=== PATIENT | male | born 1960 | race Caucasian/White ===

== ENCOUNTER 2019-05-13 01:18 | Inpatient (IN) | payer OTHER ==
[~2019-05-13] VITALS: Ht 177.8 cm; Wt 144.0 kg
[2019-05-13] MEDS ORDERED: SERT25TA PO (01:59)
[2019-05-13] MEDS ORDERED: SYN0.088T PO (01:59)
[2019-05-13] MEDS ORDERED: BROM2.5T22 PO (01:59)
[2019-05-13] MEDS ORDERED: HUM7525 SQ (01:59)
[2019-05-13] MEDS ORDERED: ALOG25TA2 PO (01:59)
[2019-05-13] MEDS ORDERED: ATOR20TA PO (01:59)
[2019-05-13] MEDS ORDERED: TRAZ-219 PO (01:59)
[2019-05-13] MEDS ORDERED: INSU100V9 SQ (01:59)
[2019-05-13 02:03] LABS: BASOPHILS # (AUTO) 0.1 X10'3 (0-0.2); BASOPHILS % (AUTO) 0.7 % (0-1); EOSINOPHILS # (AUTO) 0.2 X10'3 (0-0.9); EOSINOPHILS % (AUTO) 1.7 % (0-6); HEMATOCRIT 36.1 % (42.0-52.0); HEMOGLOBIN 11.8 g/dl (14.0-17.9); LYMPHOCYTES # (AUTO) 1.6 X10'3 (1.1-4.8); LYMPHOCYTES % (AUTO) 13.5 % (21-51); MEAN CORPUSCULAR HEMOGLOBIN 28.7 PG (27.0-31.0); MEAN CORPUSCULAR HGB CONC 32.8 g/dL (33.0-36.5); MEAN CORPUSCULAR VOLUME 87.5 FL (78-98); MEAN PLATELET VOLUME 7.5 FL (7.4-10.4); NEUTROPHILS # (AUTO) 8.7 X10'3 (1.8-7.7); NEUTROPHILS % (AUTO) 75.1 % (42-75); PLATELET COUNT 231 X10'3 (140-440); RED BLOOD COUNT 4.13 X10'6 (4.70-6.10); RED CELL DISTRIBUTION WIDTH 14.6 % (11.5-14.5); WHITE BLOOD COUNT 11.6 X10'3 (4.5-11.0)
[2019-05-13 02:43] LABS: ALANINE AMINOTRANSFERASE 39 U/L (12-78); ALBUMIN 3.2 G/DL (3.4-5.0); ALBUMIN/GLOBULIN RATIO 0.8 (1.1-1.5); ALKALINE PHOSPHATASE 67 IU/L (46-116); ANION GAP 10 (8-16); ASPARTATE AMINO TRANSFERASE 16 U/L (10-37); BILIRUBIN,TOTAL 0.2 MG/DL (0.1-1.0); BLOOD UREA NITROGEN 17 MG/DL (7-18); BUN/CREATININE RATIO 9.1 (5.4-32.0); CALCIUM 8.9 MG/DL (8.5-10.1); CHLORIDE 106 MMOL/L (99-107); CREATININE 1.87 MG/DL (0.60-1.10); GLUCOSE 136 MG/DL (70-104); POTASSIUM 4.1 MMOL/L (3.5-5.1); SODIUM 143 MMOL/L (135-145); TOTAL CARBON DIOXIDE 27.2 MMOL/L (24-32); TOTAL PROTEIN 7.3 G/DL (6.4-8.2); eGFR 37 ML/MIN
[2019-05-13] MEDS ORDERED: normal saline 1000ML IV soln IVB ONE ×2 (03:00→06:35)
[2019-05-13] MEDS ORDERED: ondansetron/PF 4mg/2ml inj IV ONE (03:00)
[2019-05-13] MEDS ORDERED: morphine 4 MG/ML inj SYRINge IV ONE ×2 (03:00→06:35)
[2019-05-13 03:22] LABS: CLARITY,URINE CLEAR (Clear); COLOR,URINE YELLOW (Yellow); GLUCOSE, URINE NEGATIVE (Neg); KETONES,URINE TRACE mg/dl (Neg); LEUKOCYTE ESTERASE ,URINE NEGATIVE (Neg); NITRITES, URINE NEGATIVE (Neg); OCCULT BLOOD,URINE NEGATIVE (Neg); PROTEIN,URINE NEGATIVE (Neg); UA COLLECTION TYPE CLN CATCH MIDSTREAM; UROBILINOGEN,URINE 0.2 E.U/dL (0.2-1.0)
[2019-05-13] MEDS ORDERED: HYDR-3965 PO (06:10)
[2019-05-13] MEDS ORDERED: piperacillin/tazo 3.375gm/50ml 50 ML IV ONE (06:35)
[2019-05-13] MEDS ORDERED: CIPR-230 PO (07:00)
[2019-05-13] MEDS ORDERED: CHLO25TA2 PO (07:00)
[2019-05-13] MEDS ORDERED: METR-159 PO (07:00)
[2019-05-13] MEDS ORDERED: RANI-388 PO (07:00)
[2019-05-13] MEDS ORDERED: LISI40TA4 PO (07:04)
[2019-05-13] MEDS ORDERED: potassium CL 10mEq/100ml bag 100 ML IV PRN ×2 (07:40)
[2019-05-13] MEDS ORDERED: magnesium 4gm in 100ml NS 100 ML IV PRN (07:40)
[2019-05-13] MEDS ORDERED: magnesium 2GM in 50ml NS 50 ML IV PRN (07:40)
[2019-05-13] MEDS ORDERED: ondansetron/PF 4mg/2ml inj IV PRN (07:40)
[2019-05-13] MEDS ORDERED: magnesium Cl slow-release 64mg tablet PO PRN (07:40)
[2019-05-13] MEDS ORDERED: potassium Cl 20 mEq SR tablet PO PRN ×2 (07:40)
[2019-05-13] MEDS: piperacillin/tazo 4.5gm/100ml 100 ML IV SCH ×3 (08:00→23:49)
--- NOTE | 2019-05-13 08:12 | NUR ---
RN unable to take report will call back in 15 min
[2019-05-13] MEDS: K and/or MAG REPLACEMENT MC SCH (08:17)
[2019-05-13] MEDS: normal saline 1000ml 1,000 ML IV SCH ×3 (08:18→23:51)
--- NOTE | 2019-05-13 08:37 | NUR ---
report received from Venancio BO In the ER
[2019-05-13 09:00] VITALS: BP 115/79
[2019-05-13] MEDS ORDERED: BROM0.8T PO (09:44)
[2019-05-13] MEDS ORDERED: LEVO25TA7 PO (09:44)
[2019-05-13] MEDS ORDERED: ASPI-611 PO (09:44)
[2019-05-13] MEDS ORDERED: [UNRECOGNIZED DRUG - CODE] PO (09:44)
[2019-05-13] MEDS ORDERED: DONE5TAB7 PO (09:44)
[2019-05-13] MEDS ORDERED: ZONI100C6 PO (09:44)
[2019-05-13] MEDS ORDERED: SERT100T10 PO (09:44)
[2019-05-13] MEDS ORDERED: MELA3TAB64 PO (09:44)
[2019-05-13 10:00] VITALS: BP 150/66
[2019-05-13] MEDS ORDERED: dextrose ORAL solution 15 GM/59 ML bottle PO PRN ×2 (11:30)
[2019-05-13] MEDS ORDERED: MESSAGE TO PHARMACY PO ONE (11:30)
[2019-05-13] MEDS ORDERED: glucagon, human recombinant 1mg kit SUBCUT PRN (11:30)
[2019-05-13] MEDS ORDERED: dextrose 50%-water 50ml dispensing syringe IV PRN ×2 (11:30)
[2019-05-13] MEDS ORDERED: insulin Lispro (HumaLOG) vial - multi-dose SQ SCH (11:30)
[2019-05-13] MEDS: ESOMEPRAZOLE 40 MG VIAL IV SCH (11:53)
[2019-05-13] MEDS: morphine 2 MG/ML inj. syringe IV PRN ×3 (11:53→21:45)
[2019-05-13 12:07] LABS: HEMOGLOBIN A1C 7.4 % (4.5-6.2)
[2019-05-13 18:00] VITALS: BP 119/58
--- NOTE | 2019-05-13 18:32 | NUR ---
Problems reprioritized. Patient report given, questions answered & plan of care reviewed with Lucian BO.
[2019-05-13] MEDS: zonisamide 100mg capsule PO SCH (20:00)
[2019-05-13] MEDS: insulin glargine (Lantus) pen - multi-dose SQ SCH (21:00)
[2019-05-13] MEDS: lactobacillus rhamnosus 10,000 MMU CELLS/CAPSULE PO SCH (21:30)
[2019-05-13] MEDS: traZODone 50mg tablet PO SCH (21:32)
[2019-05-13] MEDS: atorvastatin 20mg tablet PO SCH (21:32)
[2019-05-13] MEDS: donepezil 5mg tablet PO SCH (21:32)
[2019-05-13] MEDS: Melatonin 3mg tablet PO SCH (21:36)
[2019-05-13] MEDS: lisinopril 20mg tablet PO SCH (21:38)
[2019-05-13 22:00] VITALS: BP 126/60
--- NOTE | 2019-05-13 23:26 | NUR ---
cpap started by RT. pt tolerating at this time.
[2019-05-14 06:00] VITALS: BP 99/55
--- NOTE | 2019-05-14 06:00 | NUR ---
Patient in room [facility] 4015. I have received report from Lucian and had the opportunity to ask questions and assume patient care.
--- NOTE | 2019-05-14 06:07 | NUR ---
reported to days. noted pt on bowel rest. no orders for today.
[2019-05-14 06:10] LABS: ALBUMIN 2.8 G/DL (3.4-5.0); ANION GAP 6 (8-16); BLOOD UREA NITROGEN 15 MG/DL (7-18); BUN/CREATININE RATIO 9.4 (5.4-32.0); CALCIUM 8.1 MG/DL (8.5-10.1); CHLORIDE 109 MMOL/L (99-107); CREATININE 1.59 MG/DL (0.60-1.10); GLUCOSE 138 MG/DL (70-104); MAGNESIUM 1.7 MG/DL (1.5-2.4); POTASSIUM 4.2 MMOL/L (3.5-5.1); SODIUM 143 MMOL/L (135-145); TOTAL CARBON DIOXIDE 27.9 MMOL/L (24-32); eGFR 45 ML/MIN
[2019-05-14 06:12] LABS: BASOPHILS % (AUTO) 0.6 % (0-1); EOSINOPHILS # (AUTO) 0.3 X10'3 (0-0.9); EOSINOPHILS % (AUTO) 4.1 % (0-6); HEMATOCRIT 34.3 % (42.0-52.0); LYMPHOCYTES # (AUTO) 1.7 X10'3 (1.1-4.8); LYMPHOCYTES % (AUTO) 23.9 % (21-51); MEAN CORPUSCULAR HEMOGLOBIN 28.6 PG (27.0-31.0); MEAN CORPUSCULAR HGB CONC 32.2 g/dL (33.0-36.5); MEAN CORPUSCULAR VOLUME 88.6 FL (78-98); MONOCYTES # (AUTO) 0.7 X10'3 (0-0.9); MONOCYTES % (AUTO) 10.7 % (2-12); NEUTROPHILS # (AUTO) 4.3 X10'3 (1.8-7.7); NEUTROPHILS % (AUTO) 60.7 % (42-75); PLATELET COUNT 207 X10'3 (140-440); RED BLOOD COUNT 3.87 X10'6 (4.70-6.10); RED CELL DISTRIBUTION WIDTH 14.6 % (11.5-14.5)
[2019-05-14] MEDS ORDERED: BROMOCRIPTINE MESYLATE 0.8 MG PO SCH (08:00)
[2019-05-14] MEDS: K and/or MAG REPLACEMENT MC SCH (08:00)
[2019-05-14] MEDS: zonisamide 100mg capsule PO SCH (08:00)
[2019-05-14] MEDS ORDERED: BROMOCRIPTINE PO SCH (08:00)
[2019-05-14] MEDS: ESOMEPRAZOLE 40 MG VIAL IV SCH (09:04)
[2019-05-14] MEDS: lactobacillus rhamnosus 10,000 MMU CELLS/CAPSULE PO SCH ×2 (09:04→19:42)
[2019-05-14] MEDS: piperacillin/tazo 4.5gm/100ml 100 ML IV SCH ×2 (09:04→16:26)
[2019-05-14] MEDS: levoTHYROXINE 25mcg tablet PO SCH (09:05)
[2019-05-14] MEDS: aspirin 81mg tablet.DR PO SCH (09:05)
[2019-05-14] MEDS: sertraline 50mg tablet PO SCH (09:06)
[2019-05-14] MEDS: normal saline 1000ml 1,000 ML IV SCH ×2 (09:18→23:51)
[2019-05-14 10:00] VITALS: BP 124/71
[2019-05-14] MEDS: morphine 2 MG/ML inj. syringe IV PRN ×3 (11:10→21:59)
--- NOTE | 2019-05-14 12:38 | NUR ---
WOUND INFECTION EDUCATION PROVIDED BY [facility]OUND [facility] 1. Patient instructed to call their primary doctor, or go the ED immediately if any of the following symptoms occur: * Increased pain in wound * Increase in drainage from the wound * Redness in the skin surrounding the wound * Warmth in the skin surrounding the wound * Bleeding from the wound * Temperature of 101 or greater 2. If any of these occur while in the hospital tell a nurse immediately. Addendum: 05/14/19 at 1238 by Xenia Tripp RN Amended: Links added.
--- NOTE | 2019-05-14 17:33 | NUR ---
DM consult, A1c is 7.4, patient given written DM education handout with verbal review and referral to outpatient DM education class on Sunday. Addendum: 05/14/19 at [address] Amended: Links added.
[2019-05-14 18:00] VITALS: BP 147/85
--- NOTE | 2019-05-14 18:38 | NUR ---
Problems reprioritized. Patient report given, questions answered & plan of care reviewed with Panda BO.
--- NOTE | 2019-05-14 18:39 | NUR ---
Patient in room [facility]TH[facility] 4015. I have received report from Tash BO and had the opportunity to ask questions and assume patient care.
[2019-05-14] MEDS: traZODone 50mg tablet PO SCH (19:41)
[2019-05-14] MEDS: lisinopril 20mg tablet PO SCH (19:41)
[2019-05-14] MEDS: donepezil 5mg tablet PO SCH (19:42)
[2019-05-14] MEDS: atorvastatin 20mg tablet PO SCH (19:42)
[2019-05-14] MEDS: Melatonin 3mg tablet PO SCH (19:42)
[2019-05-14] MEDS: insulin glargine (Lantus) pen - multi-dose SQ SCH (19:47)
[2019-05-14 22:00] VITALS: BP 112/58
[2019-05-15] MEDS: piperacillin/tazo 4.5gm/100ml 100 ML IV SCH ×2 (00:32→08:59)
[2019-05-15] MEDS: morphine 2 MG/ML inj. syringe IV PRN ×2 (01:57→08:47)
[2019-05-15 06:29] LABS: ALBUMIN 2.7 G/DL (3.4-5.0); ANION GAP 7 (8-16); BLOOD UREA NITROGEN 14 MG/DL (7-18); BUN/CREATININE RATIO 11.5 (5.4-32.0); CALCIUM 8.4 MG/DL (8.5-10.1); CHLORIDE 109 MMOL/L (99-107); CREATININE 1.22 MG/DL (0.60-1.10); GLUCOSE 135 MG/DL (70-104); MAGNESIUM 1.7 MG/DL (1.5-2.4); SODIUM 143 MMOL/L (135-145); TOTAL CARBON DIOXIDE 26.8 MMOL/L (24-32); eGFR 61 ML/MIN
[2019-05-15 06:31] LABS: BASOPHILS % (AUTO) 0.6 % (0-1); EOSINOPHILS # (AUTO) 0.3 X10'3 (0-0.9); EOSINOPHILS % (AUTO) 3.8 % (0-6); HEMOGLOBIN 10.6 g/dl (14.0-17.9); LYMPHOCYTES % (AUTO) 29.9 % (21-51); MEAN CORPUSCULAR HGB CONC 33.2 g/dL (33.0-36.5); MEAN CORPUSCULAR VOLUME 87.3 FL (78-98); MEAN PLATELET VOLUME 8.2 FL (7.4-10.4); MONOCYTES # (AUTO) 0.7 X10'3 (0-0.9); NEUTROPHILS # (AUTO) 3.7 X10'3 (1.8-7.7); NEUTROPHILS % (AUTO) 55.7 % (42-75); PLATELET COUNT 200 X10'3 (140-440); RED BLOOD COUNT 3.66 X10'6 (4.70-6.10); RED CELL DISTRIBUTION WIDTH 14.6 % (11.5-14.5); WHITE BLOOD COUNT 6.7 X10'3 (4.5-11.0)
--- NOTE | 2019-05-15 06:36 | NUR ---
Problems reprioritized. Patient report given, questions answered & plan of care reviewed with Re BO.
--- NOTE | 2019-05-15 06:42 | NUR ---
Patient in room [facility] 4015. I have received report from ANUPAM Farah and had the opportunity to ask questions and assume patient care. Patient is currently sitting up on the side of the bed, bed locked and low, call light in reach. No acute distress, will continue to monitor.
[2019-05-15] MEDS: K and/or MAG REPLACEMENT MC SCH (08:00)
[2019-05-15] MEDS: levoTHYROXINE 25mcg tablet PO SCH (08:00)
[2019-05-15] MEDS ORDERED: HYDR-4383 PO (08:57)
[2019-05-15] MEDS ORDERED: CIPR-230 PO (08:57)
[2019-05-15] MEDS ORDERED: METR-159 PO (08:57)
[2019-05-15] MEDS: aspirin 81mg tablet.DR PO SCH (08:59)
[2019-05-15] MEDS: ESOMEPRAZOLE 40 MG VIAL IV SCH (08:59)
[2019-05-15] MEDS: lactobacillus rhamnosus 10,000 MMU CELLS/CAPSULE PO SCH (08:59)
[2019-05-15] MEDS: sertraline 50mg tablet PO SCH (09:06)
[2019-05-15] MEDS: normal saline 1000ml 1,000 ML IV SCH (09:37)
[2019-05-15 10:12] VITALS: BP 125/65
--- NOTE | 2019-05-15 11:45 | NUR ---
Received orders for patient discharge. Went over discharge packet with patient including informatino for new prescriptions, patient verbalized understanding of information and plans to go to [place] [facility] [place] for [place]. Patient belongings gathered, IV removed, catheter tip intact, hemostasis achieved, patient was able to dress himself. Taken down to lobby by nurse's aid, patient in stable condition at time of discharge.
== END 2019-05-15 11:30 | disposition home or self-care (01) | DRG 872 ==
LOC: ER 01:20 → ORTHO 4S 09:08 → CMPBEDREQ 19:41
PROVIDERS: ADMIT Internal Medicine; ATTEND Internal Medicine
PROC: 5A09357 Assistance with Respiratory Ventilation, Less than 24 Consecutive Hours, Continuous Positive Airway Pressure (ICD-10-PCS; principal; 2019-05-13)
DX: A41.9 Sepsis, unspecified organism (principal); K57.92 Diverticulitis of intestine, part unspecified, without perforation or abscess without bleeding; N17.9 Acute kidney failure, unspecified; Z68.42 Body mass index [BMI] 45.0-49.9, adult; E66.01 Morbid (severe) obesity due to excess calories; N18.3 Chronic kidney disease, stage 3 (moderate); D63.8 Anemia in other chronic diseases classified elsewhere; E03.9 Hypothyroidism, unspecified; E78.5 Hyperlipidemia, unspecified; F32.9 Major depressive disorder, single episode, unspecified; J44.9 Chronic obstructive pulmonary disease, unspecified; E11.22 Type 2 diabetes mellitus with diabetic chronic kidney disease; I12.9 Hypertensive chronic kidney disease with stage 1 through stage 4 chronic kidney disease, or unspecified chronic kidney disease; K80.20 Calculus of gallbladder without cholecystitis without obstruction; G47.30 Sleep apnea, unspecified; Z79.4 Long term (current) use of insulin; Z79.84 Long term (current) use of oral hypoglycemic drugs; Z79.82 Long term (current) use of aspirin; Z79.899 Other long term (current) drug therapy; Z79.890 Hormone replacement therapy; Z90.49 Acquired absence of other specified parts of digestive tract; Z87.891 Personal history of nicotine dependence
CPT/HCPCS: 36415; 74176; 80048; 80053; 81003; 82948; 83036; 83735; 85025; 85610; 87081; 94660; 94760; 96361; 96365; 96375; 96376; 99285; G0378; J1815; J2270; J2405; J2543; J7030